=== PATIENT | female | born 1965 | race Hispanic/Latino ===

== ENCOUNTER → 2019-03-18 | Day surgery (SDC) | payer OTHER ==
[~2019-03-18] MED LIST: ACETAMINOPHEN325 M1 PO; BUPIVACAINE 0.5%/EPI 30 ML SDV INJ ONE; CEFAZOLIN SOD 1 GM/NS 50ML 100 ML IV ONE; DEXAMETHASONE SOD PHOS INJ 4 MG/ML VIAL ONE; FENTANYL CITRATE/PF 100MCG/2 ML INJ ONE; HYDROCODON-ACE1 EAC9 PO; IBUPROFEN400 MG PO; KETOROLAC TROMETHAMINE 30 MG/ML VIAL ONE; LIDOCAINE HCL 2% LOCAL INJ 5 ML SDV VIAL INJ ONE; MIDAZOLAM HCL 2 MG/2 ML VIAL ONE; ONDANSETRON HCL 4 MG ORAL DISINTEGRATING TAB ONE; ONDANSETRON HCL INJ 2MG/ML 2ML 2 MG/ML VIAL ONE; PROPOFOL IV EMULSION 10 MG/ML 20 ML VIAL ONE; SEVOFLURANE INHAL SOLN 250 ML PEN BTL ONE
--- OUTSIDE RECORDS SUMMARY | 2019-03-18 05:27 | XMS REPORT ---
[facility] Address Unknown Phone Unavailable Care Team Providers Care Cellular Biologist Name Role Phone Unavailable Unavailable Payers Payer Name Policy Type Policy Number Effective Date Expiration Date Problems This patient has no known problems. Allergies, Adverse Reactions, Alerts Allergy Name Allergy Type Status Severity Reaction(s) Onset Date Inactive Date Treating Clinician Comments No Known Allergies DA Active U 2019-01-05 00:00:00 No Known Allergies DA Active U 2014-11-24 00:00:00 Medications This patient has no known medications. 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 Bony trabecular pattern is unremarkable. No cortical destruction or periosteal reaction. No joint effusion is present. No stranding in Hoffa's fat pad. Regional soft tissues are unremarkable. IMPRESSION: Negative examination of the left knee at 1319 Reported and signed by: Aden Sanders MD CC: Jay Ríos; Jeannette Mauricio NP Technologist: Gaby Culp Trnscrpt Data: 01/05/2019 (1319) [id number] Orig Print D/T: S: 01/05/2019 (3233) PAGE 1 Signed Report
[2019-03-18 09:28] VITALS: BP 135/84
--- NOTE | 2019-03-19 16:12 | Operative Report ---
DATE OF PROCEDURE: 03/18/2019 SURGEON: Fermin Shirley MD PREOPERATIVE DIAGNOSES: 1. Left knee medial meniscus tear. 2. Left knee degenerative joint disease of the knee. POSTOPERATIVE DIAGNOSES: 1. Left knee medial meniscus tear. 2. Left knee degenerative joint disease of the knee. OPERATIONS AND PROCEDURES PERFORMED: The patient underwent a left knee examination anesthesia, left knee arthroscopy, left knee partial medial meniscectomy, left knee chondroplasty of the patella, the trochlea, the medial femoral condyle, the medial tibial plateau, and the lateral tibial plateau. PROJ ENGINEER: DAMARIS Sood. ANESTHESIA: General endotracheal intubation anesthesia. IV FLUIDS: Per anesthesia record. BRIEF DESCRIPTION OF THE PATIENT'S OPERATIVE PROCEDURE: Ms. Yan was taken to the operating room, placed in supine position on the operating table. Following induction of general anesthesia as well as endotracheal intubation, the patient's left lower extremity was examined under anesthesia. She was found to have a mild effusion within the knee joint, but otherwise ligamentously stable knee. The patient's lower extremity was prepped and draped in standard surgical fashion. A two-port technique used to provide this patient arthroscopic evaluation of the knee joint. Examination of suprapatellar pouch and medial lateral gutters found no evidence of loose bodies. There was, however, evidence of chondromalacia of the patella and trochlear surfaces. The scope was advanced to the medial compartment. Examination of the medial compartment demonstrated a torn medial meniscus. There was also chondromalacia of the articulating surfaces. A combination of biting forceps and a motorized shaver used to resect the torn portion of meniscus. Chondroplasties of the medial femoral condyle and medial tibial plateau performed at this time. Scope was advanced to the intercondylar notch. The anterior cruciate ligament was identified and found to be intact. Scope was advanced to lateral compartment and chondromalacia of the lateral tibial plateau was encountered. A chondroplasty of this surface was performed. Scope was then placed in suprapatellar pouch and chondroplasties of the patella also performed. The knee was insufflated with sterile normal saline. The portal sites were closed using 4-0 nylon suture. The portal sites as well as knee itself were then injected with 0.5% Marcaine with epinephrine. Sterile dressings were applied and the patient was awakened, taken to postanesthesia care in stable condition. MD KAILYN Schilling/ERAN /[id number]
== END | disposition home or self-care (01) ==
LOC: OR 05:25
PROVIDERS: ATTEND Specialist
DX: S83.222A Peripheral tear of medial meniscus, current injury, left knee, initial encounter (principal); M17.12 Unilateral primary osteoarthritis, left knee; Z01.810 Encounter for preprocedural cardiovascular examination
CPT/HCPCS: 29881; 93005; J0690; J1100; J1885; J2001; J2250; J2405; J2704; J3010; Q0162